=== PATIENT | female | born 2000 | race Caucasian/White ===

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

== ENCOUNTER 2020-05-22 08:53 | Emergency (ER) | payer OTHER ==
[~2020-05-22] VITALS: Ht 167.6 cm; Wt 61.6 kg
--- NOTE | 2020-05-22 09:19 | NUR ---
PT AMBULATORY TO ROOM 18 W/ C/O RLQ ABD PAIN STARTED 1 WK AGO WORSENED TODAY. PT ALSO HAS C/O NAUSEA. PT RESTING ON GURNEY. NADN. MONITORS APPLIED. VSS. PIV INITIATED. PT AWARE OF NEED FOR STRICT NPO STATUS AND VERBALIZES UNDERSTANDING. WARM BLANKET PROVIDED. [facility] SWO AT BEDSIDE FOR EVAL.
[2020-05-22] MEDS ORDERED: ONDANSETRON 2MG/ML, 2ML ONE (09:27)
[2020-05-22] MEDS ORDERED: SODIUM CHLORIDE FLUSH 10ML SYR IVF ONE (09:30)
[2020-05-22] MEDS ORDERED: ONDANSETRON 2MG/ML, 2ML IVPush ONE (09:30)
[2020-05-22 09:56] LABS: MICROSCOPIC NOT IND
[2020-05-22 10:01] LABS: BASOPHILS % (AUTO) 2 % (0-1); EOSINOPHILS % (AUTO) 0 % (1-7); LYMPHOCYTES % (AUTO) 21 % (22-44); MEAN CORPUSCULAR HEMOGLOBIN 30.6 pg (27.0-34.8); MEAN CORPUSCULAR HGB CONC 33.8 g/dL (32.4-35.8); MEAN PLATELET VOLUME 9.3 fL (7.4-10.4); MONOCYTES % (AUTO) 10 % (2-9); NEUTROPHILS % (AUTO) 67 % (42-75); PLATELET COUNT 190 x10^3/uL (130-400); RED CELL DISTRIBUTION WIDTH 12.9 % (9.6-15.2)
[2020-05-22 10:02] LABS: MD NO
[2020-05-22 10:04] LABS: CHLORIDE 108 mmol/L (98-107)
[2020-05-22 10:12] LABS: ALANINE AMINOTRANSFERASE 23 U/L (12-78); ALBUMIN 4.3 g/dL (3.4-5.0); ALKALINE PHOSPHATASE 71 U/L (45-117); ANION GAP 4 mmol/L (5-15); BILIRUBIN,TOTAL 0.7 mg/dL (0.2-1.0); CALCIUM 8.8 mg/dL (8.5-10.1); TOTAL PROTEIN 8.3 g/dL (6.4-8.2)
--- NOTE | 2020-05-22 10:14 | NUR ---
PT RESTING ON GURNEY. NADN. KING.
[2020-05-22] MEDS ORDERED: OMNIPAQUE 350 MG/ML, 100ML BOTTLE ONE (10:30)
--- NOTE | 2020-05-22 10:59 | NUR ---
PT CHART REVIEWED AND PLACED FOR RECHECK.
--- NOTE | 2020-05-22 11:11 | NUR ---
PT RESTING ON GURNEY. NADN. KING.
--- NOTE | 2020-05-22 12:07 | NUR ---
PT TAKEN TO US IN STABLE CONDITION
--- NOTE | 2020-05-22 12:39 | NUR ---
PT CHART REVIEWED AND PLACED FOR RECHECK.
[2020-05-22 12:54] VITALS: BP 110/62
--- NOTE | 2020-05-22 12:55 | NUR ---
PT RESTING ON GURNEY. NADN. KING.
== END 2020-05-22 13:04 | disposition home or self-care (01) ==
LOC: ED 10:17
DX: R10.31 Right lower quadrant pain (principal); R11.0 Nausea
CPT/HCPCS: 36415; 74177; 76830; 80053; 81003; 84703; 85025; 96374; 99285; J2405; Q9967

== ENCOUNTER → 2020-09-10 | Outpatient (CLI) | payer OTHER ==
[~2020-09-10] MED LIST changes: +OMNIPAQUE 350 MG/ML, 75ML BOTTLE ONE; +SULF-23 PO; -SULF1TAB24 PO
== END | disposition home or self-care (01) ==
LOC: RAD 14:01
PROVIDERS: ATTEND Family Medicine
DX: R07.89 Other chest pain (principal)
CPT/HCPCS: 71275; Q9967

== ENCOUNTER 2020-10-08 08:39 | Outpatient (CLI) | payer OTHER ==
[~2020-10-08 08:39] MED LIST changes: +LIDOCAINE 1%, 10ML ONE; -OMNIPAQUE 350 MG/ML, 75ML BOTTLE ONE; +ROPivacaine/PF 0.2%, 10 ML ONE
[2020-10-08] MEDS ORDERED: GADOTERATE 5 MMOL/10 ML VIAL ONE (09:00)
[2020-10-08] MEDS ORDERED: OMNIPAQUE 300 MG/ML, 10ML VIAL ONE (09:00)
== END 2020-10-08 23:59 | disposition home or self-care (01) ==
LOC: RAD 08:39
PROVIDERS: ATTEND Orthopaedic Surgery
DX: M24.151 Other articular cartilage disorders, right hip (principal)
CPT/HCPCS: 27093; 73525; 73722; A9575; J2795; J3490; Q9967